=== PATIENT | female | born 1970 | race Asian ===

== ENCOUNTER 2019-04-30 01:02 | Emergency (ER) | payer SELFPAY ==
[~2019-04-30] VITALS: Ht 152.4 cm; Wt 90.7 kg
[2019-04-30] MEDS ORDERED: SODIUM CHLORIDE 0.9% 1,000 ML IV ONE ×2 (04:00→05:30)
[2019-04-30] MEDS ORDERED: KETOROLAC TROMETH 15 mg/ml 1ML VL IV ONE (04:00)
[2019-04-30] MEDS ORDERED: InsuLIN REG 1unit/0.01ml Soln (100units/ml) IV ONE ×2 (04:00→05:30)
[2019-04-30 04:15] VITALS: BP 119/78
[2019-04-30 04:38] LABS: Basophils # (auto) 0 uL; Basophils % (auto) 0.8 % (0.0-2.0); Eosinophils # (auto) 0.1 uL; Eosinophils % (auto) 1.1 % (0.0-7.0); Hematocrit 45.4 % (36.0-46.0); Hemoglobin 15.2 g/dL (12.2-16.2); Lymphocytes # (auto) 2.4 uL; Lymphocytes % (auto) 40.4 % (10.0-50.0); Mean Corpuscular Hemoglobin 29.7 pg (28.0-32.0); Mean Corpuscular Hgb Conc. 33.4 g/dL (32.0-36.0); Mean Corpuscular Volume 88.8 fL (80.0-100.0); Monocytes # (auto) 0.5 uL; Monocytes % (auto) 7.6 % (0.0-12.0); Neutrophils % (auto) 50.1 % (37.0-80.0); Nucleated Red Blood Cells % 0.2 %; Platelet Count (auto) 221 10^3/uL (140-450); Red Blood Cells 5.12 10^6/uL (4.0-5.20); Red Cell Distribution Width 15.3 % (11.8-14.3)
[2019-04-30 04:51] LABS: INR 0.97 (0.9-1.15)
[2019-04-30 04:55] LABS: Albumin 3.8 g/dL (3.4-5.0); Magnesium 2.2 mg/dL (1.6-2.6); Potassium 3.8 mmol/L (3.5-5.1)
[2019-04-30 04:59] LABS: BUN/Creatinine Ratio 10.6; Bilirubin, Total 0.5 mg/dL (0.2-1.0); Total Protein 8.6 g/dL (6.4-8.2)
== END 2019-04-30 06:16 | disposition home or self-care (01) ==
LOC: ER 01:02
DX: M79.605 Pain in left leg (principal); M79.604 Pain in right leg; E11.65 Type 2 diabetes mellitus with hyperglycemia
CPT/HCPCS: 36415; 80053; 82962; 83036; 83735; 85025; 85610; 96361; 96374; 96375; 99284; J1815; J1885; J7030

== ENCOUNTER 2020-09-08 15:06 | Emergency (ER) | payer BC, OTHER ==
[~2020-09-08] VITALS: Ht 152.4 cm; Wt 86.2 kg
[2020-09-08 17:27] VITALS: BP 116/80
[2020-09-08] MEDS ORDERED: methylPREDNISolone SOD SUCC 125 MG/2 ML VL IM ONE (17:45)
[2020-09-08] MEDS ORDERED: cefTRIAXone SOD 1,000 MG VL IM ONE (17:45)
== END 2020-09-08 17:58 | disposition home or self-care (01) ==
LOC: ER 15:06
DX: J20.9 Acute bronchitis, unspecified (principal); J03.90 Acute tonsillitis, unspecified; E11.9 Type 2 diabetes mellitus without complications
CPT/HCPCS: 71045; 96372; 99284; J0696; J2930